=== PATIENT | male | born 1970 | race African-American/Black ===

== ENCOUNTER 2020-02-22 17:39 | Emergency (ER) | payer SELFPAY ==
[~2020-02-22] VITALS: Ht 177.8 cm; Wt 72.6 kg
[2020-02-22] MEDS ORDERED: Tetanus/Diptheria/Pertussis IM ONE (17:45)
--- NOTE | 2020-02-22 17:48 | NUR ---
ED Nurse Note: Pt was brought in by [employer] for medical clearance and lac on R middle finger acquired after punching as glass. Per PD, pt's under police custody. Pt is AOx3, calm and cooperative to care. Pt stated he already got his tetanus shot >5 years ago but <10 yrs ago, notified [facility].
--- NOTE | 2020-02-22 17:50 | NUR ---
ED Nurse Note: xray at bedside
[2020-02-22 18:02] VITALS: BP 125/77
--- NOTE | 2020-02-22 18:11 | Diagnostic Imaging Report ---
EXAM: XR Right Hand Complete, 3 or More Views CLINICAL HISTORY: TRAUMA TECHNIQUE: Frontal, lateral and oblique views of the right hand. COMPARISON: No relevant prior studies available. FINDINGS: Bones/joints: Mildly angulated fifth metacarpal neck fracture. No dislocation. Soft tissues: Local soft tissue swelling. No radiopaque foreign body. Other findings: Otherwise unremarkable study. IMPRESSION: 1. Mildly angulated fifth metacarpal neck fracture. 2. Local soft tissue swelling. 3. Otherwise unremarkable study.
[2020-02-22] MEDS ORDERED: Lidocaine 1% Plain 30 ml INJ ONE (18:15)
--- NOTE | 2020-02-22 18:43 | Emergency Room Report ---
History of Present Illness General Chief Complaint: Medical Clearance Source: Patient Present Illness HPI 49-year-old male with no significant past medical history brought in by [facility] for medical clearance. Patient reports that he punched glass with right hand and 1 cm laceration noted on right third digit with bleeding. Has range of motion of the affected side, is neurovascularly intact. Patient appears to be under the influence of an unknown stimulus. Also complains of right fifth finger pain obvious deformity noted however appears to be old. Denies any tingling numbness. Also has an abrasion on scalp which reports he got this morning after he was trying to shave. Denies any head injury or loss of consciousness. Denies any dizziness, chest pain, shortness of breath, blurry vision. Is up-to-date with tetanus shot reports that he got it more than 5 years ago however less than 10 years ago. Denies all other associated symptoms. Allergies: Coded Allergies: No Known Allergies (Unverified , 02/22/20) COVID-19 Screening Contact w/high risk pt: No Experienced COVID-19 symptoms?: No COVID-19 Testing performed MANAGER PROCUREMENT: No Patient History Past Medical History: see triage record Past Surgical History: none Pertinent Family History: none Immunizations: UTD Reviewed Nursing Documentation: PMH: Agreed; PSxH: Agreed Nursing Documentation-PMH Past Medical History: No Stated History Review of Systems All Other Systems: negative except mentioned in HPI Physical Exam Vital Signs Date Time Temp Pulse Resp B/P (MAP) Pulse Ox O2 Delivery O2 Flow Rate FiO2 02/22/20 17:42 98.2 101 18 125/77 (93) 98 Room Air Sp02 EP Interpretation: reviewed, normal General Appearance: no apparent distress, alert, GCS 15, non-toxic Head: normocephalic Eyes: bilateral eye normal inspection, bilateral eye PERRL ENT: hearing grossly normal, normal pharynx, no angioedema, normal voice Neck: full range of motion, supple, thyroid normal, no meningismus, no bony tend, supple/symm/no masses Respiratory: chest non-tender, lungs clear, no respiratory distress, no retraction, no accessory muscle use, speaking full sentences Cardiovascular #1: regular rate, rhythm, no edema Cardiovascular #2: 2+ radial (R), 2+ radial (L) Gastrointestinal: normal bowel sounds, non tender, soft, non-distended, no guarding, no rebound Musculoskeletal: swelling - right third finger and deformity of right fifth finger, other - neurovascularly intact Neurologic: alert, motor strength/tone normal, oriented x3, sensory intact, responsive, speech normal Psychiatric: judgement/insight normal, memory normal, mood/affect normal, no suicidal/homicidal ideation Skin: laceration - 1 cm lac superficial dorsum right third finger, abrasion - scalp non infected Lymphatic: no adenopathy Procedures Splinting Splinting : Consent: Verbal Location: right fifth metacarpal Pre-Made Type: metal Pre-Proc Neuro Vasc Exam: normal Post-Proc Neuro Vasc Exam: normal Patient Tolerated: Well Complications: None Laceration/Wound Repair Laceration/Wound Repair : Consent: Verbal Wound Location: upper extremity - right third finger Wound's Depth, Shape: superficial Wound Length (cm): 1 Wound Explored: contaminated Betadine Prep?: Yes Anesthesia: 1% Lidocaine Volume Anesthetic (ccs): 5 Wound Repaired With: sutures Suture Size/Type: 4:0, proline Number of Sutures: 6 Layer Closure?: Yes Sterile Dressing Applied?: Yes Splint Applied?: Yes Type of Splint Applied: metal Sling Applied?: No Patient Tolerated: Well Complications: None Medical Decision Making PA Attestation ALL Diagnosis and treatment plan reviewed and discussed with my supervising physician Dr. Antunez Diagnostic Impression: Primary Impression: Laceration of finger Additional Impressions: Metacarpal bone fracture Abrasion, scalp w/o infection ER Course 49-year-old male with no significant past medical history brought in by [facility] department for medical clearance. Patient reports that he punched glass with right hand and 1 cm laceration noted on right third digit with bleeding. Has range of motion of the affected side, is neurovascularly intact. Patient appears to be under the influence of an unknown stimulus. Also complains of right fifth finger pain obvious deformity noted however appears to be old. Denies any tingling numbness. Also has an abrasion on scalp which reports he got this morning after he was trying to shave. Denies any head injury or loss of consciousness. Denies any dizziness, chest pain, shortness of breath, blurry vision. Is up-to-date with tetanus shot reports that he got it more than 5 years ago however less than 10 years ago. Denies all other associated symptoms. Ddx considered but are not limited to : Superficial laceration, deep laceration, tendon involvement with laceration, laceration with foreign body, finger fracture versus sprain versus contusion Vital signs: are WNL, pt. is afebrile H&PE are most consistent with: Metacarpal bone fracture, laceration of finger superficial,, abrasion noninfected scalp ORDERS: Right hand x-ray, Augmentin, Motrin, mupirocin ointment ED INTERVENTIONS: Laceration repair, splint applied patient noncompliance and also due to tear location of the dorsum of base of right third finger and fracture of the right metacarpal bone fracture appears to be with obvious deformity being old it is best to have 2 metal splint applied 1 at 31 and 50 finger close department before hand splint and covering sutures. Sutures to be removed in 7 to 10 days. DISCHARGE: At this time pt. is stable for d/c to home. Will provide printed patient care instructions, and any necessary prescriptions. Care plan and follow up instructions have been discussed with the patient prior to discharge. Take medication as directed, follow-up with media marketing specialist, if worsening symptoms return to the emergency room Other X-Ray Diagnostic Results Other X-Ray Diagnostic Results : X-Ray ordered: Right hand # of Views/Limited Vs Complete: 3 View Indication: Pain EP Interpretation: Yes PA Xray: Interpretation reviewed, by supervising MD, and agrees with findings. Interpretation: no dislocation, other - Fracture of right fifth metacarpal bone Impression: Other - Right fifth metacarpal bone fracture Electronically Signed by: Jeanne GONZALES Scribe Text IMPRESSION: 1. Mildly angulated fifth metacarpal neck fracture. 2. Local soft tissue swelling. 3. Otherwise unremarkable study. Last Vital Signs Date Time Temp Pulse Resp B/P (MAP) Pulse Ox O2 Delivery O2 Flow Rate FiO2 02/22/20 18:02 98.2 18 125/77 98 Room Air 02/22/20 17:50 101 Disposition: LAW ENFORCEMENT IN CUST Condition: Stable Scripts Mupirocin* (MUPIROCIN*) 22 Gm Oint...g. 1 APPLIC TOPIC THREE TIMES A DAY, #22 GM Prov: Jeanne Wolff 02/22/20 Ibuprofen* (MOTRIN*) 600 Mg Tablet 600 MG ORAL Q6H PRN for For Pain, #30 TAB 0 Refills Prov: Jeanne Wolff 02/22/20 Amoxicillin/Potassium Clav 875-125* (AUGMENTIN 875-125 TABLET*) 1 Each Tablet 1 TAB ORAL TWICE A DAY for 7 Days, #14 TAB Prov: Jeanne Wolff 02/22/20 Referrals: NOT CHOSEN IPA/MD,REFERRING (PCP) Patient Instructions: Abrasion, [id number], Finger Fracture, [id number], Laceration Care, Adult Additional Instructions: Take medication as directed, follow-up with your primary care provider and media marketing specialist, if worsening symptoms return to the emergency room. Sutures to be removed and 7 to 10 days Jeanne Wolff Feb 22, 2020 18:43
[2020-02-22] MEDS ORDERED: MUPIROCIN22 GM TOPIC (18:45)
[2020-02-22] MEDS ORDERED: AUGMENTIN 875-1 EAC1 ORAL (18:45)
[2020-02-22] MEDS ORDERED: IBUPROFEN600 M1 ORAL (18:45)
[2020-02-22] MEDS ORDERED: Bacitracin Oint UD TOPIC ONE (18:45)
[2020-02-22 18:52] VITALS: BP 125/77
--- NOTE | 2020-02-22 18:52 | NUR ---
ER DISCHARGE NOTE: Patient is cleared to be discharged per ERMD, pt is aox4, on room air, with stable vital signs. pt and police offiers were given dc and prescription instructions, understanding of teachings were verbalized., pt id band removed without complications. pt is able to ambulate with steady gait. pt took all belongings and left in police custody
== END 2020-02-22 18:54 ==
LOC: EMR 18:11
DX: S61.212A Laceration without foreign body of right middle finger without damage to nail, initial encounter (principal); S00.01XA Abrasion of scalp, initial encounter; S62.336A Displaced fracture of neck of fifth metacarpal bone, right hand, initial encounter for closed fracture; W25.XXXA Contact with sharp glass, initial encounter; Y92.9 Unspecified place or not applicable
CPT/HCPCS: 12001; 29130; 73130; 99283; J2001